=== PATIENT | male | born 1995 | race Two or more races ===

== ENCOUNTER 2016-07-28 22:04 | Emergency (ER) | payer BC ==
[2016-07-28 23:34] LABS: Hematocrit 47 % (42-52); Hemoglobin 15.1 g/dl (14.0-18.0); Mean Corpuscular HGB Conc 32 g/dl (31-36); Mean Corpuscular Hemoglobin 26 pg (27-31); Mean Corpuscular Volume 79 fL (80-94); Mean Platelet Volume 8 um3 (7.4-10.4); Red Blood Count 5.87 10^6/ul (4.0-5.4); Red Cell Distribution Width 13 % (10.5-15); White Blood Count 9.7 10^3/ul (3.5-10.8)
[2016-07-28 23:44] LABS: ALT 60 U/L (7-52); Albumin 4.4 g/dL (3.2-5.2); Alkaline Phosphatase 79 U/L (34-104); BUN/Creatinine Ratio 13.3 (8-20); Blood Urea Nitrogen 10 mg/dL (6-24); CO2 Carbon Dioxide 24 mmol/L (22-32); Calcium 9.7 mg/dL (8.6-10.3); Chloride 103 mmol/L (101-111); EGFR African American 170.8 (>60); EGFR Non-African American 132.8 (>60); Glucose 102 mg/dL (70-100); Lipase 15 U/L (11.0-82.0); Sodium 135 mmol/L (133-145); Total Protein 7.4 g/dL (6.4-8.9)
[2016-07-29] MEDS ORDERED: NS 0.9% 1000 ML* 1,000 ML IV ONE (00:02)
[2016-07-29 00:39] VITALS: BP 101/55
--- NOTE | 2016-07-31 23:38 | ED ---
Barb Gama Anna, scribed for Rafi Mohan MD on 07/28/16 at 2226 . GI/ HPI - HPI Summary HPI Summary: Patient is a 20 y/o male coming to [facility] following several episodes of emesis that began yesterday. He vomited after lunch and dinner yesterday and again after dinner today. He was most concerned after four episodes of emesis this evening. He additionally reports nasal congestion and a cough. He does not think he vomited blood. Denies fever or abdominal pain. He is not aware of any change in his diet or any sick contacts. The symptoms have largely resolved at this time. - History of Current Complaint Time Seen by Provider: 07/28/16 22:14 Stated Complaint: VOMITING Hx Obtained From: Patient Onset/Duration: Started Days Ago Timing: Intermittent Severity: Moderate Current Severity: Moderate Associated Signs and Symptoms: Positive: Vomiting, Cough, Other: - Nasal congestion. Negative: Fever, Abdominal Pain - Allergy/Home Medications Allergies/Adverse Reactions: Allergies Allergy/AdvReac Type Severity Reaction Status Date / Time No Known Allergies Allergy Verified 07/29/16 00:05 PMH/Surg Hx/FS Hx/Imm Hx Previously Healthy: Yes Cardiovascular History: Denies: Hx Coronary Artery Disease, Hx Hypertension Infectious Disease History: No Infectious Disease History: Denies: Traveled Outside the [place] in Last 30 Days - Family History Known Family History: Positive: Hypertension - Hx maternal grandmother, Diabetes - Hx father's family - Social History Occupation: Student Lives: With Family Alcohol Use: Rare Hx Substance Use: No Substance Use Type: Reports: None Hx Tobacco Use: No Smoking Status (MU): Never Smoked Tobacco Review of Systems Negative: Fever Positive: Other - nasal congestion Positive: Cough Positive: Vomiting. Negative: Abdominal Pain Psychological: Normal All Other Systems Reviewed And Are Negative: Yes Physical Exam Triage Information Reviewed: Yes Vital Signs On Initial Exam: Initial Vitals Temp Pulse Resp BP Pulse Ox 98.6 F 82 16 127/79 98 07/28/16 22:07 07/28/16 22:07 07/28/16 22:07 07/28/16 22:07 07/28/16 22:07 Vital Signs Reviewed: Yes Appearance: Positive: Well-Appearing, No Pain Distress Skin: Positive: Warm, Skin Color Reflects Adequate Perfusion, Dry Head/Face: Positive: Normal Head/Face Inspection Eyes: Positive: Normal, EOMI, GARRET Neck: Positive: Supple, Nontender Respiratory/Lung Sounds: Positive: Clear to Auscultation, Breath Sounds Present Cardiovascular: Positive: Normal, RRR Abdomen Description: Positive: Nontender, Soft. Negative: Distended, Guarding Bowel Sounds: Positive: Present Musculoskeletal: Positive: Normal, Strength/ROM Intact Neurological: Positive: Normal, Sensory/Motor Intact, Alert, Oriented to Person Place, Time Psychiatric: Positive: Affect/Mood Appropriate Diagnostics - Vital Signs Vital Signs Temp Pulse Resp BP Pulse Ox 07/28/16 22:07 98.6 F 82 16 127/79 98 - Laboratory Result Diagrams: 07/28/16 23:00 07/28/16 23:00 Lab Statement: Any lab studies that have been ordered have been reviewed, and results considered in the medical decision making process. - Ultrasound No standard instances Ultrasound Interpretation: No Acute Changes Ultrasound Interpretation Completed By: ED Physician - Abd US Impression: Bowel gas present. No acute concerns. GIGU Course/Dx - Diagnoses Differential Diagnoses - Male: Constipation, Appendicitis, Cholecystitis, Cholelithiasis, Urinary Tract Infection - Unclear cause for the nausea and vomiting, but will eval with bedside US for biliary colic. Never had abdominal pain and without testicular pain. He is deferring formal imaging at this time and understands return precautions., Vomiting Provider Diagnoses: ACUTE NAUSEA AND VOMITING Discharge - Discharge Plan Condition: Improved Disposition: HOME Prescriptions: Ondansetron TAB* [Zofran Tab*] 8 mg PO Q6H PRN #10 tab PRN Reason: Nausea Patient Education Materials: Acute Nausea and Vomiting (ED) Referrals: [facility] [Outside] Additional Instructions: Follow up with primary care physician within 48 hours. Return to the emergency department for changing or worsening symptoms. The documentation as recorded by the Barb esparza Anna accurately reflects the service I personally performed and the decisions made by , Rafi Mohan MD.
== END 2016-07-29 00:36 | disposition home or self-care (01) ==
LOC: ED 22:04
DX: R11.2 Nausea with vomiting, unspecified (principal); R05 Cough
CPT/HCPCS: 36415; 80053; 83690; 85027; 96360; 99283